=== PATIENT | female | born 1995 | race Caucasian/White ===

== ENCOUNTER 2023-01-01 14:06 | Inpatient (IN) | payer OTHER, SELFPAY ==
[2023-01-01] VITALS (68 sets, daily range): BP systolic 110–172; BP diastolic 58–108; PULSE 61–160; RESP 16–22; TEMP 36.2–36.8; O2SAT 77–100; BMI 31.7
[2023-01-01 15:14] LABS: Basophils Percent Auto 0.3 % (0.2-1.2); Eosinophils Absolute Auto 0.3 K/mm3 (0-0.3); Eosinophils Percent Auto 2.5 % (0-4.4); Hematocrit 34.2 % (37.0-47.0); Hemoglobin 11.3 g/dL (12.0-15.0); Immature Granulocyte Percent A 0.9 % (0-0.5); Lymphocytes Absolute Auto 2.15 K/mm3 (0.9-3.2); Lymphocytes Percent Auto 19.5 % (18.3-44.2); Mean Corpuscular Hemoglobin 27.2 pg (26-34); Mean Corpuscular Volume 82.4 fl (80-100); Mean Platelet Volume 10.4 fl (7.4-10.4); Monocytes Absolute Auto 0.5 K/mm3 (0.1-0.6); Monocytes Percent Auto 4.5 % (2.6-8.5); Neutrophils Percent Auto 72.3 % (45.5-73.1); Platelet Count Result 263 k/mm3 (150-375); Red Blood Count 4.15 M/mm3 (4.2-5.4)
--- NOTE | 2023-01-01 15:39 | LDADM ---
This patient, Myra Kyle, was admitted to Labor/Delivery/Recovery 105 on 01/01/23 at 14:06. Plans for labor, pain management and were discussed with patient. Patient/family oriented to hospital policies and general routines including ID bracelet, bed and alarms, visiting hours, pain management, procedures, bathroom and other care routines, personal items, smoking policy, room service/diet and guest tray routines, security routines, and visiting hours. Patient/Family are encouraged to report perceived risks to care and to ask questions if they do not understand what they are told or what they should do. See OBIX for further documentation.
[2023-01-01] MEDS: fentaNYL CITRATE INJ (*CRX) 100 MCG/2 ML VIAL IV PUSH ×3 (16:27→20:35)
--- NOTE | 2023-01-01 16:29 | PM.IMHP ---
H&P: HPI History of Present Illness Date/Time: 01/01/23 16:29 Chief Complaint: labor Narrative: 27yo at 40w admitted in labor. Contractions since 0300. BOW intact. uncomplicated except by RA, stable on plaquenil. Review of Systems Review of Systems: All systems reviewed & are unremarkable except as noted in HPI and below [facility] Family History Family History (Updated 12/07/22 @ 15:50 by Amita Carvalho RN) Father Rheumatoid arthritis Sibling Rheumatoid arthritis Social History Social History Smoking status: Never smoker Second hand tobacco smoke exposure: No Substance use: never Lack of Transportation: No Lack of Food: Never True Current Housing: I Have Housing Concerned About Future Housing: No Difficulty Paying Gas/Electric Bills: No Difficulty Paying for Meds: No Currently Unemployed: No Education: Bachelor's Degree Difficulty w/ Childcare or Family Care: No Spiritual care concerns: No Meds Home Medications and Allergies Home Medications Medication Instructions Recorded Confirmed Type hydroxychloroquine 200 mg tablet 200 mg PO DAILY 12/07/22 12/07/22 History (Plaquenil) prenat.vits,baldev,[id number] 1 tablet PO DAILY 12/07/22 12/07/22 History Allergies Allergy/AdvReac Type Severity Reaction Status Date / Time No Known Allergies Allergy Verified 01/01/23 15:27 Vital Signs Vital Signs - 24 hr 01/01/23 15:01 01/01/23 15:48 Pulse Rate 127 H 92 Blood Pressure 115/73 131/76 Exam Const: General: no acute distress Resp: Effort & Inspection: normal respiratory effort Auscultation: clear to auscultation bilaterally Cardio: Rate: regular rate Rhythm: regular rhythm GI: GI Palp: Yes Soft to palpation Extrem: General: normal to inspection H&P: Results Labs Labs: Short CBC 01/01/23 Range/Units 15:04 WBC 11.0 H (4.5-10.0) K/mm3 Hgb 11.3 L (12.0-15.0) g/dL Hct 34.2 L (37.0-47.0) % Plt Count 263 (150-375) k/mm3 Assessment and Plan Assessment and plan (1) Normal labor: Code(s): O80 - Encounter for full-term uncomplicated delivery; Z37.9 - Outcome of delivery, unspecified Status: Acute Plan FHT category 1 GBS neg AROM clear SVE 5-6/100/-2
[2023-01-01] MEDS: LACTATED RINGERS 1,000 ML 125 ML IV CONT ×2 (20:05→20:35)
--- NOTE | 2023-01-01 20:20 | WPDANESEPP ---
Anes - Eval Pre Procedure Procedure: labor epidural Date/Time: 01/01/23 20:20 Surgeon: nikolas Preop Diagnosis: pain during labor Pre Op Diagnosis: Labor Patient Data Age: 27 Gender: F Height: 1.75 m Weight: 97.5 kg Last Vital Signs Temp 36.8 C 01/01/23 17:59 Pulse 111 H 01/01/23 19:41 BP 150/92 H 01/01/23 19:41 Pulse Ox 95 01/01/23 19:39 O2 Del Method Room Air 01/01/23 19:30 Allergies Allergy/AdvReac Type Severity Reaction Status Date / Time No Known Allergies Allergy Verified 01/01/23 15:27 Home Medications Medication Instructions Recorded Confirmed Type hydroxychloroquine 200 mg tablet 200 mg PO DAILY 12/07/22 01/01/23 History (Plaquenil) prenat.vits,baldev,[id number] 1 tablet PO DAILY 12/07/22 01/01/23 History Laboratory Tests 01/01/23 01/01/23 01/01/23 15:04 15:04 15:04 WBC 11.0 K/mm3 H K/mm3 (4.5-10.0) RBC 4.15 M/mm3 L M/mm3 (4.2-5.4) Hgb 11.3 g/dL L g/dL (12.0-15.0) Hct 34.2 % L % (37.0-47.0) MCV 82.4 fl fl (80-100) MCH 27.2 pg pg (26-34) MCHC 33.0 g/dl g/dl (32-36) RDW 14.0 % % (11.5-14.5) Plt Count 263 k/mm3 k/mm3 (150-375) MPV 10.4 fl fl (7.4-10.4) Immature Gran % (Auto) 0.9 % H % (0-0.5) Neut % (Auto) 72.3 % % (45.5-73.1) Lymph % (Auto) 19.5 % % (18.3-44.2) [place] % (Auto) 4.5 % % (2.6-8.5) Eos % (Auto) 2.5 % % (0-4.4) Baso % (Auto) 0.3 % % (0.2-1.2) Lymph # (Auto) 2.15 K/mm3 K/mm3 (0.9-3.2) [place] # (Auto) 0.5 K/mm3 K/mm3 (0.1-0.6) Eos # (Auto) 0.3 K/mm3 K/mm3 (0-0.3) Baso # (Auto) 0.0 K/mm3 K/mm3 (0.0-0.1) Abs Immat Gran (auto) 0.10 K/mm3 H K/mm3 (0.00-0.031) Absolute Neuts (auto) 8.0 K/mm3 H K/mm3 (1.3-6.7) Absolute Nucleated RBC 0.0 K/mm3 K/mm3 (0.0-0.012) Nucleated RBC % 0.0 % % (0.0-0.2) RPR Pending Blood Type O Positive Antibody Screen Negative Patient hx anesthesia problems: none Family hx anesthesia problems: none Results Review: All pre-operative results and documents have been reviewed as part of the pre-operative evaluation. [facility] Family History Family History (Updated 12/07/22 @ 15:50 by Amita Carvalho RN) Father Rheumatoid arthritis Sibling Rheumatoid arthritis Social History Social History Smoking status: Never smoker Second hand tobacco smoke exposure: No Substance use: never Lack of Transportation: No Lack of Food: Never True Current Housing: I Have Housing Concerned About Future Housing: No Difficulty Paying Gas/Electric Bills: No Difficulty Paying for Meds: No Currently Unemployed: No Education: Bachelor's Degree Difficulty w/ Childcare or Family Care: No Spiritual care concerns: No Exam Day of Procedure 01/01/23 20:20
[2023-01-01] MEDS: OXYTOCIN 30 UNITS/NS 500 ML 30 UNITS/500 ML BAG IV CONT (22:45)
[2023-01-02] VITALS (30 sets, daily range): BP systolic 92–150; BP diastolic 54–94; PULSE 70–168; RESP 16–18; TEMP 36.3–36.9; O2SAT 99–100
--- NOTE | 2023-01-02 04:16 | PM.OBPRVD ---
OB - Delivery Note Procedure Delivery date: 01/02/23 Procedure: vaginal delivery Induction method: None Delivery augmentation: Rupture of Membranes and Pitocin Delivery monitor: External FHT and External Uterine Route of delivery: Laceration Description: None Specimen: No Quantitative Blood Loss (ml): 62 Anesthesia type: Epidural Disposition: Floor Narrative: mom and baby stable and doing skin to skin [place] Baby Date of : 01/02/23 Time of : 04:06 Weeks of gestation at delivery: 40 Infant gender: Female presentation: vertex position: Right Occiput Anterior Placenta delivery description: Spontaneous Cord Vessel Description: 3 Vessels, Nuchal Cord, Clamped/Cut, Delayed Cord Clamping and Around Body score one minute: 8 score five minutes: 9
[2023-01-02] MEDS: OXYTOCIN 30 UNITS/NS 500 ML 30 UNITS/500 ML BAG 125 UNITS IV CONT (04:40)
[2023-01-02] MEDS: diphenhydrAMINE HCl INJ 50 MG/ML VIAL 25 MG IV PUSH (05:24)
[2023-01-02] MEDS: BENZOCAINE 20% AER SPR (*SP) 56 GM CAN 1 SPRAY TOPICAL (06:30)
[2023-01-02] MEDS: WITCH HAZEL 40 PADS 1 PAD TOPICAL (06:30)
--- NOTE | 2023-01-02 06:53 | PC.NURSE ---
Patient transferred to post room #[id number] via (w/c ). Support person present. Oriented to unit, room, information board, rooming in, admission packet and security measures. Patient verbalizes understanding.
[2023-01-02] MEDS: HYDROXYCHLOROQUINE SULFATE 200 MG TABLET PO (07:27)
[2023-01-02] MEDS: DOCUSATE SODIUM 100 MG CAPSULE PO (07:28)
[2023-01-02] MEDS: ACETAMINOPHEN 325 MG TABLET 650 MG PO (07:28)
[2023-01-02] MEDS: MULTIVIT/MIN/PREN/FOL AC/IRON TABLET 1 TAB PO (07:28)
[2023-01-02] MEDS: diphenhydrAMINE HCl CAP 25 MG CAPSULE PO (12:47)
[2023-01-02 13:21] LABS: Rapid Plasma Reagin Non-Reactive (NonReactive)
[2023-01-02] MEDS: IBUPROFEN 600 MG TABLET PO (20:29)
[2023-01-03] MEDS: IBUPROFEN 600 MG TABLET PO (05:23)
[2023-01-03 05:50] LABS: Hematocrit 34.3 % (37.0-47.0); Hemoglobin 10.8 g/dL (12.0-15.0)
[2023-01-03] MEDS: ACETAMINOPHEN 325 MG TABLET 650 MG PO (07:55)
[2023-01-03] MEDS: MULTIVIT/MIN/PREN/FOL AC/IRON TABLET 1 TAB PO (07:56)
[2023-01-03] MEDS: DOCUSATE SODIUM 100 MG CAPSULE PO (07:56)
[2023-01-03] MEDS: HYDROXYCHLOROQUINE SULFATE 200 MG TABLET PO (07:56)
[2023-01-03 08:00] VITALS: BP 146/89; PULSE 100; RESP 18; TEMP 36.4; O2SAT 100
--- NOTE | 2023-01-03 10:16 | PM.OBPNVD ---
OB - PN: Subj Subjective Date/time seen: 01/03/23 10:16 s/p vaginal delivery OB - PN: Obj Data Labs 01/03/23 05:32 Labs: Laboratory Results - last 24 hr 01/01/23 01/03/23 15:04 05:32 Hgb 10.8 L Hct 34.3 L RPR Non-reactive OB - PN A/P Plan day: 2 Plan: routine care and discharge home Time Spent With Patient Time: Total time spent is greater than 50% in coordination of care (as documented) at patient's floor/unit and/or counseling patient: Review of Systems Review of Systems: All systems reviewed & are unremarkable except as noted in HPI and below Exam Const: General: cooperative, healthy appearing and comfortable Resp: Effort & Inspection: normal respiratory effort
--- NOTE | 2023-01-03 10:19 | PM.OBDSVD ---
DS: Admitting Diagnosis Discharge Date 01/03/23 Admitting Diagnosis labor DS: Discharge Diagnosis Discharge Diagnosis (1) Vaginal delivery: Code(s): O80 - Encounter for full-term uncomplicated delivery Status: Acute OB - DS: Summary OB Procedures : None OB Procedures Intrapartum: Spontaneous Vag Delivery OB Procedures: : None Time Spent with Patient Time attestation: Total time spent providing and/or coordinating discharge services: DS: Data Data Completed and Pending Labs on day of discharge: Labs from last 24 hours 01/03/23 01/01/23 05:32 15:04 Hgb 10.8 L Hct 34.3 L RPR Non-reactive Discharge Plan Discharge Attending physician on discharge: Dwayne Barker Discharging Clinician: Jess Amanda Patient Disposition: Home, Self-Care Activity: pelvic rest Diet: regular Patient Instructions: Antibiotic Form Stand Alone Forms: General Discharge Information Follow-up/Referrals: Jess Amanda, CNM [Certified Nurse Recruiter Coordinator] - 1 Week Discharge Medications: New ibuprofen 600 mg Tablet 600 mg PO Q6H PRN (Reason: Cramping) Qty: 30 0RF Continued hydroxychloroquine [Plaquenil] 200 mg Tablet 200 mg PO DAILY #2 Tablet 1 tablet PO DAILY Date of admission: 01/01/23 14:06 Primary Care Provider: UNKNOWN,DOCTOR Admitting Provider: Rox Paris Attending physician on admission: Rox Paris Condition: Stable
[2023-01-04 11:25] VITALS: BP 124/74; PULSE 78; RESP 20; TEMP 36.8; O2SAT 100
== END 2023-01-03 10:52 | disposition home or self-care (01) | DRG 807 ==
LOC: ANHLDR 15:09 → ANHOB2 01-03 10:18 → ANHLDR 01-04 12:03 → ANHOB2 01-04 12:03
PROVIDERS: Admitting Provider Obstetrics & Gynecology; Visit Provider Advanced Practice Midwife
DX: O69.81X0 Labor and delivery complicated by cord around neck, without compression, not applicable or unspecified (principal); Z37.0 Single live birth; Z3A.40 40 weeks gestation of pregnancy
CPT/HCPCS: 36415; 85014; 85018; 85025; 86592; 86850; 86900; 86901; A9270; J1200; J2590; J2795; J3010; J7120

== ENCOUNTER 2024-05-20 23:42 | Inpatient (IN) | payer OTHER, SELFPAY ==
[2024-05-21] VITALS (24 sets, daily range): BP systolic 118–175; BP diastolic 74–121; PULSE 50–161; RESP 16–18; TEMP 36.7–37; O2SAT 92–100; BMI 20.8
--- NOTE | 2024-05-21 00:15 | LDADM ---
This patient, Myra Kyle, was admitted to Labor/Delivery/Recovery 106 on 05/20/24 at 23:42. Plans for labor, pain management and were discussed with patient. Patient/family oriented to hospital policies and general routines including ID bracelet, bed and alarms, visiting hours, pain management, procedures, bathroom and other care routines, personal items, smoking policy, room service/diet and guest tray routines, security routines, and visiting hours. Patient/Family are encouraged to report perceived risks to care and to ask questions if they do not understand what they are told or what they should do. See OBIX for further documentation.
[2024-05-21 00:18] LABS: Basophils Percent Auto 0.3 % (0.2-1.2); Eosinophils Percent Auto 0.4 % (0-4.4); Hematocrit 35.1 % (37.0-47.0); Hemoglobin 11.4 g/dL (12.0-15.0); Immature Granulocyte Absolute 0.09 K/mm3 (0.00-0.031); Lymphocytes Absolute Auto 2.26 K/mm3 (0.9-3.2); Lymphocytes Percent Auto 24.6 % (18.3-44.2); Mean Corpuscular HGB Conc 32.5 g/dl (32-36); Mean Corpuscular Hemoglobin 26.9 pg (26-34); Mean Corpuscular Volume 82.8 fl (80-100); Mean Platelet Volume 11.1 fl (7.4-10.4); Monocytes Absolute Auto 0.5 K/mm3 (0.1-0.6); Monocytes Percent Auto 5.2 % (2.6-8.5); Neutrophils Absolute Auto 6.3 K/mm3 (1.3-6.7); Neutrophils Percent Auto 68.5 % (45.5-73.1); Platelet Count Result 230 k/mm3 (150-375); Red Blood Count 4.24 M/mm3 (4.2-5.4); Red Cell Distribution Width 15.9 % (11.5-14.5); White Blood Count 9.2 K/mm3 (4.5-10.0)
[2024-05-21 01:09] LABS: HIV 1/2 Ab P24 Ag Result Negative (Negative)
[2024-05-21 01:12] LABS: Rapid Plasma Reagin Non-Reactive (NonReactive)
[2024-05-21] MEDS: fentaNYL CITRATE INJ (*CRX) 100 MCG/2 ML VIAL 50 MCG IV PUSH (05:18)
--- NOTE | 2024-05-21 05:23 | WPDOBADMIT ---
Obstetrics - Admit Note Admission Note: record reviewed. No pertinent additions to the history and/or any subsequent changes in the physical findings that are not consistent with the expected course of the were found. Additions to the history and/or subsequent changes in the physical findings follow. Admit in labor, history of rheumatoid arthritis, anticipate vaginal delivery
[2024-05-21] MEDS: LACTATED RINGERS 1,000 ML 125 ML IV CONT ×2 (05:29→06:19)
--- NOTE | 2024-05-21 06:05 | WPDANESEPP ---
Anes - Eval Pre Procedure Procedure: Labor epidural Date/Time: 05/21/24 06:05 Surgeon: Mj Preop Diagnosis: Abdominal pain with contractions Pre Op Diagnosis: CTX Patient Data Age: 28 Gender: F Height: 1.75 m Weight: 64 kg Last Vital Signs Pulse Ox 97 05/21/24 00:26 O2 Del Method Room Air 05/21/24 00:14 Allergies Allergy/AdvReac Type Severity Reaction Status Date / Time No Known Allergies Allergy Verified 01/01/23 15:27 Home Medications Medication Instructions Recorded Confirmed Type hydroxychloroquine 200 mg tablet 200 mg PO DAILY 12/07/22 01/01/23 History (Plaquenil) prenat.vits,baldev,[id number] 1 tablet PO DAILY 12/07/22 01/01/23 History Laboratory Tests 05/21/24 00:12 WBC 9.2 K/mm3 (4.5-10.0) RBC 4.24 M/mm3 (4.2-5.4) Hgb 11.4 L g/dL (12.0-15.0) Hct 35.1 L % (37.0-47.0) MCV 82.8 fl (80-100) MCH 26.9 pg (26-34) MCHC 32.5 g/dl (32-36) RDW 15.9 H % (11.5-14.5) Plt Count 230 k/mm3 (150-375) MPV 11.1 H fl (7.4-10.4) Immature Gran % (Auto) 1.0 H % (0-0.5) Neut % (Auto) 68.5 % (45.5-73.1) Lymph % (Auto) 24.6 % (18.3-44.2) [place] % (Auto) 5.2 % (2.6-8.5) Eos % (Auto) 0.4 % (0-4.4) Baso % (Auto) 0.3 % (0.2-1.2) Lymph # (Auto) 2.26 K/mm3 (0.9-3.2) [place] # (Auto) 0.5 K/mm3 (0.1-0.6) Eos # (Auto) 0.0 K/mm3 (0-0.3) Baso # (Auto) 0.0 K/mm3 (0.0-0.1) Abs Immat Gran (auto) 0.09 H K/mm3 (0.00-0.031) Absolute Neuts (auto) 6.3 K/mm3 (1.3-6.7) Absolute Nucleated RBC 0.000 K/mm3 (0.0-0.012) Nucleated RBC % 0.0 % (0.0-0.2) RPR Non-reactive (NonReactive) HIV 1&2 Ab/P24 Ag 4thGn Negative (Negative) Blood Type O Positive Antibody Screen Negative : gestational age HCG: positive Patient hx anesthesia problems: none Family hx anesthesia problems: none Results Review: All pre-operative results and documents have been reviewed as part of the pre-operative evaluation. [facility] Past Medical History Medical History and not yet delivered Rheumatoid arthritis Family History Family History Father Rheumatoid arthritis Sibling Rheumatoid arthritis Social History Social History Smoking status: Never smoker Second hand tobacco smoke exposure: No Substance use: never Do You Feel Safe in your Home?: Yes Lack of Transportation: No Lack of Food: Never True Current Housing: I Have Housing Concerned About Future Housing: No Difficulty Paying Gas/Electric Bills: No Difficulty Paying for Meds: No Currently Unemployed: No Education: Master's Degree or Higher Difficulty w/ Childcare or Family Care: No Spiritual care concerns: No Exam Day of Procedure 05/21/24 06:05 Patient weight: normal
[2024-05-21] MEDS: LORazepam INJ (*CRX) 2 MG/ML VIAL 1 MG IV PUSH (06:18)
[2024-05-21] MEDS: OXYTOCIN 30 UNITS/NS 500 ML 30 UNITS/500 ML BAG IV CONT (06:57)
[2024-05-21] MEDS: diphenhydrAMINE HCl INJ 50 MG/ML VIAL IV PUSH (07:47)
[2024-05-21] MEDS: MORPHINE SULFATE (*CRX) 2 MG/ML INJ IV PUSH (10:17)
--- NOTE | 2024-05-21 10:20 | PM.OBPRVD ---
OB - Vaginal Delivery Note Procedure Delivery date: 05/21/24 Induction method: None Delivery augmentation: Pitocin Delivery monitor: External FHT and Internal Uterine Route of delivery: Episiotomy description: None Laceration Description: None Specimen: No Quantitative Blood Loss (ml): 50 Disposition: Floor Complications: No immediate complications [place] Baby Date of : 05/21/24 Time of : 09:57 Gestational Age by Date: 39 gender: Male Weight (pounds): 8 Weight (ounces): 9 presentation: vertex position: Left Occiput Anterior Placenta delivery description: Spontaneous Cord Vessel Description: 3 Vessels and Clamped/Cut score one minute: 8 score five minutes: 9
[2024-05-21] MEDS: OXYTOCIN 30 UNITS/NS 500 ML 30 UNITS/500 ML BAG 125 UNITS IV CONT (10:36)
[2024-05-21] MEDS: WITCH HAZEL 40 PADS 1 PAD TOPICAL (10:37)
[2024-05-21] MEDS: IBUPROFEN 600 MG TABLET PO ×2 (10:37→19:59)
[2024-05-21] MEDS: BENZOCAINE 20% AER SPR (*SP) 56 GM CAN 1 SPRAY TOPICAL (10:37)
--- NOTE | 2024-05-21 12:30 | OBPPTRN ---
Patient transferred to post room # 286 via ambulatory. Support person present. Oriented to unit, room, information board, rooming in, admission packet and security measures. Patient verbalizes understanding.
--- NOTE | 2024-05-21 21:55 | PC.NURSE ---
Patient was given the opportunity to view the discharge video Mother & Baby Care, The First Two Weeks and to ask questions. Patient declined viewing the video and has been given the mother/baby guide for home reference.
[2024-05-22 00:10] VITALS: BP 115/60; PULSE 96; RESP 16; TEMP 37.6
[2024-05-22] MEDS: IBUPROFEN 600 MG TABLET PO (03:55)
[2024-05-22] MEDS: diphenhydrAMINE HCl CAP 25 MG CAPSULE 50 MG PO (03:58)
[2024-05-22 04:27] LABS: Hematocrit 31.8 % (37.0-47.0)
[2024-05-22 07:42] VITALS: BP 130/89; PULSE 75; RESP 14; TEMP 36.3; O2SAT 99
--- NOTE | 2024-05-22 08:45 | PC.NURSE ---
Introductions were made, then consulted with patient to assess needs related to . Mother led the conversation with her?plans to feed?her infant and ability to feed independently. Informed to call if there is discomfort with . Communication board updated with contact information for RN. Parents voiced understanding. Reported to the Primary RN.
--- NOTE | 2024-05-22 09:52 | PM.OBPNVD ---
OB - PN: Subj Subjective Date/time seen: 05/22/24 09:52 Interval history: pp day 1 doing well no complaints requests discharge home OB - PN: Obj Data Labs 05/22/24 04:09 Labs: Laboratory Results - last 24 hr 05/22/24 04:09 Hgb 10.0 L Hct 31.8 L OB - PN A/P Plan day: 1 Plan: routine care and discharge home Time Spent With Patient Time: Total time spent is greater than 50% in coordination of care (as documented) at patient's floor/unit and/or counseling patient: Review of Systems Review of Systems: All systems reviewed & are unremarkable except as noted in HPI and below Exam Const: General: cooperative and healthy appearing Chest: Chest palpation & inspection: normal inspection of the chest Skin: General skin exam: normal color Neuro: General: patient oriented x3
--- NOTE | 2024-05-22 09:54 | PM.OBDSVD ---
DS: Admitting Diagnosis Discharge Date 05/22/24 Admitting Diagnosis labor DS: Discharge Diagnosis Discharge Diagnosis (1) Vaginal delivery: Code(s): O80 - Encounter for full-term uncomplicated delivery Status: Acute OB - DS: Summary OB Procedures : None OB Procedures Intrapartum: Spontaneous Vag Delivery OB Procedures: : None Peripartum Data Laceration Description: None Episiotomy description: None Time Spent with Patient Time attestation: Total time spent providing and/or coordinating discharge services: DS: Data Data Completed and Pending Labs on day of discharge: Labs from last 24 hours 05/22/24 04:09 Hgb 10.0 L Hct 31.8 L Discharge Plan Discharge Attending physician on discharge: Jairon Barker Discharging Clinician: Jess Amanda Patient Disposition: Home, Self-Care Activity: pelvic rest Diet: regular Patient Instructions: Antibiotic Form Stand Alone Forms: General Discharge Information Follow-up/Referrals: Jess Amanda, CNM [Certified Nurse Police Lieutenant Patrol] - 4 Weeks Discharge Medications: Continued hydroxychloroquine [Plaquenil] 200 mg Tablet 200 mg PO DAILY prenat.vits,baldev,[id number] Tablet 1 tablet PO DAILY Date of admission: 05/20/24 23:42 Primary Care Provider: UNKNOWN,DOCTOR Admitting Provider: Jairon Barker Attending physician on admission: Jairon Barker Condition: Stable
[2024-05-24 10:29] VITALS: BP 128/86; PULSE 75; RESP 18; TEMP 36.7; O2SAT 99
--- NOTE | 2024-05-30 11:07 | PC.NURSE ---
05/21/2024--Provider order for 4mg Morphine IV for pain. Order reads 2mg Morphine for pain. 4 mg given at 1004.
== END 2024-05-22 11:45 | disposition home or self-care (01) | DRG 807 ==
LOC: ANHLDR 05-21 00:06 → ANHOB2 05-21 12:33
PROVIDERS: Admitting Provider Obstetrics & Gynecology; Referring Provider Advanced Practice Midwife; Visit Provider Obstetrics & Gynecology
DX: O80 Encounter for full-term uncomplicated delivery (principal); Z37.0 Single live birth; Z3A.39 39 weeks gestation of pregnancy
CPT/HCPCS: 36415; 85014; 85018; 85025; 86592; 86703; 86850; 86900; 86901; A9270; G0432; J1200; J2060; J2270; J2590; J2795; J3010; J7120